=== PATIENT | female | born 1995 | race Two or more races ===

== ENCOUNTER 2016-09-20 19:53 | Emergency (ER) | payer SELFPAY ==
[2016-09-20 20:58] LABS: URINE BILIRUBIN NEGATIVE (NEGATIVE); URINE BLOOD 4+ (NEGATIVE); URINE GLUCOSE (UA) NEGATIVE (NEGATIVE); URINE NITRITE NEGATIVE (NEGATIVE); URINE UROBILINOGEN NORMAL (0-1 mg/dl)
[2016-09-20 20:58] LABS: HCG,QUALITATIVE URINE POSITIVE
[2016-09-20] MEDS ORDERED: SODIUM CHLORIDE 0.9% 1,000 ML ONE (21:13)
[2016-09-20 21:22] LABS: ABSOLUTE NEUTROPHIL COUNT 4.9 K/mm3 (1.8-7.7); BASO # 0.1 K/mm3 (0.0-0.2); BASO % 0.8 % (0.2-1.0); EOS # 0.1 (0.0-0.5); EOS % 1.8 % (0.9-2.9); HEMATOCRIT 39.5 % (37.0-47.0); HEMOGLOBIN 13.6 gm/l (12.0-16.0); IMM NEUT% 0.5 % (0-1); LYMPH # 2.2 (1.0-4.8); LYMPH % 27.9 % (15-45); MEAN CELL VOLUME 87.6 fl (81.0-99.0); MEAN CORPUSCULAR HEMOGLOBIN 30.2 pg (27.0-31.0); MEAN CORPUSCULAR HGB CONC 34.4 g/dl (33.0-37.0); MEAN PLATELET VOLUME 11.2 fl (7.4-10.4); MONO # 0.6 (0.0-0.8); MONO % 7.3 % (4-12); NEUT % 61.7 % (43-75); PLATELET COUNT 225 K/mm3 (130-400); RED CELL DISTRIBUTION WIDTH 12.4 % (11.5-14.5)
[2016-09-20] MEDS ORDERED: ACETAMINOPHEN 500 MG TABLET ONE (21:58)
[2016-09-20 22:32] LABS: SPECIFIC GRAVITY 1.015 (1.001-1.030); URINE LEUKOCYTE ESTERASE NEGATIVE (NEGATIVE); URINE PROTEIN NEGATIVE (NEGATIVE)
[2016-09-20 22:40] LABS: URINE APPEARANCE CLEAR; URINE COLOR YELLOW
[2016-09-20 22:42] LABS: URINE BACTERIA RARE; URINE WBC 0-2 /hpf
--- NOTE | 2016-09-21 08:39 | US ---
OB ULTRASOUND LESS THAN 14 WEEKS HISTORY: Vaginal bleeding, uncertain gestational age. Transabdominal and transvaginal obstetric ultrasound was performed. FINDINGS: INTRAUTERINE GESTATION: Present. MEAN SAC DIAMETER: 1.5 cm, corresponding to an age of 5 weeks 6 days. Diminished fluid volume. CROWN-RUMP LENGTH: 1.3 cm, corresponding to an age of 7 weeks 4 days. CARDIAC ACTIVITY: Absent. No somatic motion. SONOGRAPHIC MEAN GESTATIONAL AGE: 7 weeks 4 days. SONOGRAPHIC EDC: 05/05/2017. YOLK SAC: Not seen. MILAD-GESTATIONAL HEMORRHAGE: Not identified. RIGHT OVARY: 3.3 x 4.6 x 4.3 cm. LEFT OVARY: 1.1 x 2.2 x 2.2 cm. FOCAL ADNEXAL LESIONS: Simple cysts of the right ovary, measuring up to 3.1 cm in size, almost certainly benign. OVARIAN BLOOD FLOW: Documented bilaterally. FREE FLUID: None. IMPRESSION: Findings compatible with embryonic demise. Simple right ovarian cysts up to 3.1 cm in size. Preserved ovarian blood flow. No free fluid. Preliminary report relayed to the Emergency Medicine medical service by Dr. Tillman on 09/20/2016 at 2225 hours.
[2016-09-23 13:38] LABS: CHLAMYDIA BD Negative (Negative); N.GONORRHOEAE BD Negative (Negative); SOURCE Urine (())
== END 2016-09-20 23:49 | disposition home or self-care (01) ==
LOC: ED 19:53
DX: O03.9 Complete or unspecified spontaneous abortion without complication (principal); Z3A.01 Less than 8 weeks gestation of pregnancy